=== PATIENT | female | born 1985 | race Caucasian/White ===

== ENCOUNTER 2017-03-23 22:26 | Emergency (ER) | payer SELFPAY ==
[~2017-03-23] VITALS: Ht 157.5 cm; Wt 68.0 kg
[2017-03-23 23:05] VITALS: BP 133/76
--- NOTE | 2017-03-23 23:55 | PHYS DOC ---
Past Medical History Past Medical History: No Pertinent History Past Surgical History: Cholecystectomy, Other Additional Past Surgical Histo: hernia repair Alcohol Use: None Drug Use: None Adult General Chief Complaint Chief Complaint: DENTAL PROBLEM HPI HPI Patient is a 31 year old female who presents with left lower dental pain for the past month. Has multiple dental caries and has seen a dentist. Was given antibiotics and short course of narcotic pills. She notes taking BC powder at home. She is wanting better pain management and a referral to an Oral Surgeon as she does not think her dentist can provide appropriate services. She denies f/c, n/v, dyspnea, difficulty swallowing/speaking/opening mouth. No cough. No facial swelling. Review of Systems Review of Systems Constitutional: Denies fever or chills [] Eyes: Denies change in visual acuity, redness, or eye pain [] HENT: Denies nasal congestion or sore throat [] Respiratory: Denies cough or shortness of breath [] Cardiovascular: No additional information not addressed in HPI [] GI: Denies abdominal pain, nausea, vomiting, bloody stools or diarrhea [] : Denies dysuria or hematuria [] Musculoskeletal: Denies back pain or joint pain [] Integument: Denies rash or skin lesions [] Neurologic: Denies headache, focal weakness or sensory changes [] Endocrine: Denies polyuria or polydipsia [] Current Medications Current Medications Current Medications Medications (Trade) Dose Ordered Sig/[facility] Start Time Stop Time Status Last Admin Dose Admin Acetaminophen (Tylenol) 500 mg 1X ONCE 03/24/17 00:15 03/24/17 00:16 Allergies Allergies Allergies Coded Allergies Type Severity Reaction Last Updated Verified No Known Drug Allergies 03/24/17 No Physical Exam Physical Exam Constitutional: Well developed, well nourished, no acute distress, non-toxic appearance. [] HENT: Normocephalic, atraumatic, bilateral external ears normal, oropharynx moist, no oral exudates, nose normal. Poor dentition with multiple caries. No gumline swelling or discoloration; No stridor, change of voice, tongue swelling , trismus, or drooling; Uvula is midline and floor is nontender[] Eyes: PERRLA, EOMI. [] Neck: Normal range of motion, supple. [] Cardiovascular: Extremities warm and well perfused [] Lungs & Thorax: Respirations even and unlabored [] Abdomen: soft, no tenderness. [] Skin: Warm, dry, no erythema, no rash. [] Back: Normal ROM. [] Extremities: ROM intact, no edema. [] Neurologic: Alert and oriented X 3, normal motor function, normal sensory function, no focal deficits noted. [] Psychologic: Affect normal, judgement normal, mood normal. [] Current Patient Data Vital Signs Vital Signs Date Time Temp Pulse Resp B/P (MAP) Pulse Ox O2 Delivery O2 Flow Rate FiO2 03/23/17 23:05 98.3 69 20 100 Room Air 98.3 Course & Med Decision Making Course & Med Decision Making Discussed symptomatic care and given referral to Oral Surgeon clinic. Return precautions given. She understands and agrees with plan. Andrey Disclaimer Andrey Disclaimer This electronic medical record was generated, in whole or in part, using a voice recognition dictation system. Departure Departure Impression: Primary Impression: Pain due to dental caries Disposition: HOME, SELF-CARE Condition: STABLE Referrals: RHONDA CHAWLA Jr DDS Patient Instructions: Dental Caries-Brief Additional Instructions: Take Tylenol or ibuprofen as needed for pain. Follow-up with your dentist or oral surgeon. Please call for appointment. Return for any concerns. Dayron MCCANN MD Mar 23, 2017 23:55
[2017-03-24] MEDS ORDERED: ACETAMINOPHEN 500 MG TABLET PO ONE (00:15)
== END 2017-03-24 00:05 | disposition home or self-care (01) ==
LOC: ER 22:26
DX: K02.9 Dental caries, unspecified (principal); K08.89 Other specified disorders of teeth and supporting structures
CPT/HCPCS: 99281

== ENCOUNTER 2017-11-03 07:00 | Emergency (ER) | payer SELFPAY ==
[2017-11-03] MEDS: IBUPROFEN 800 MG TABLET. PO ×2 (07:12)
== END 2017-11-03 07:51 | disposition home or self-care (01) ==
LOC: ER 07:00
DX: S82.51XA Displaced fracture of medial malleolus of right tibia, initial encounter for closed fracture (principal); Z90.49 Acquired absence of other specified parts of digestive tract; W10.9XXA Fall (on) (from) unspecified stairs and steps, initial encounter; Y93.89 Activity, other specified; Y92.89 Other specified places as the place of occurrence of the external cause; Y99.8 Other external cause status
CPT/HCPCS: 73610; 99284